=== PATIENT | female | born 1960 | race Caucasian/White ===

== ENCOUNTER 2018-01-15 10:38 | Day surgery (SDC) | payer OTHER ==
--- NOTE | 2018-01-14 15:24 | HP ---
DATE OF SURGERY: 01/15/2018 HISTORY OF PRESENT ILLNESS: The patient has some upper abdominal pain, diarrhea, blood at the end of bowel movements a tablespoon at times. Six times here in the last few months. She has reflux symptoms. She presents for both upper and lower endoscopic examination. PAST MEDICAL HISTORY: ALLERGIES: PENICILLIN, LEVAQUIN. MEDICATIONS: Zantac, Imitrex, propranolol, Zocor. PAST SURGICAL HISTORY: Oophorectomy. Hysterectomy. SOCIAL HISTORY: Negative. FAMILY HISTORY: Negative. REVIEW OF SYSTEMS: Reflux. Migraines. PHYSICAL EXAMINATION: VITAL SIGNS: Normal. CHEST: Clear. COR: Regular. ABDOMEN: No palpable organomegaly or mass. IMPRESSION: Blood per rectum, upper abdominal pain. PLAN: EGD and colonoscopy.
[~2018-01-15 10:38] MED LIST: Lactated Ringers 1,000 ML IV SCH
[2018-01-15] MEDS ORDERED: DIPRIVAN 200 MG/20 ML IV ONE (10:39)
[2018-01-15] MEDS ORDERED: Versed 2 MG/2 ML Injection IV ONE (10:39)
[2018-01-15] MEDS ORDERED: Lactated Ringers 1,000 ML IV ONE (10:45)
--- NOTE | 2018-01-15 13:30 | OP ---
SURGERY DATE/TIME: 01/15/2018 1225 PREOPERATIVE DIAGNOSIS: Epigastric pain, diarrhea, reflux and bloody stools. POSTOPERATIVE DIAGNOSIS: 1) A 1 inch hiatal hernia. 2) Grade 2/3 gastroesophageal reflux disease. 3) Pancolonic diverticulosis with a very redundant colon. PROCEDURES: 1) Colonoscopy complete to the cecum but with a poor view of the distal cecum with findings of severe pancolonic diverticulosis and a very redundant colon. 2) EGD with cold biopsy. SURGEON: Naveen Benz M.D. MARKETING EXECUTIVE: Brennan Child M.D. ANESTHESIA: MAC. COMPLICATIONS: None. CONDITION: Stable. INDICATION: A patient requiring evaluation. DESCRIPTION OF PROCEDURE: Taken to endoscopy. MAC sedation provided. Upper scope introduced. Pharyngo-esophageal junction satisfactory. Esophagus normal down to gastroesophageal junction. A rim of esophagitis grade II. There was a 1 inch hiatal hernia. Fundus, body, antrum satisfactory. Pylorus satisfactory. Duodenal bulb and second portion satisfactory. The scope withdrawn. No mucosal lesions noted. Anal digital examination. Anus was slightly loose. Scope introduced. She did expel some air. She did have hiccups. Scope advanced. The colon was very redundant. There was pancolonic diverticulosis. The left side was a little bit firm. It was moved over to the right side down and around. It was very redundant. I believe a distal view was obtained of the cecum but it was just a little limited so you cannot see the very inside corner of the distal cecum. Circumferential withdrawal. No mucosal lesions were noted. The patient tolerated the procedure satisfactorily.
[2018-01-15 14:12] VITALS: O2SAT 96
[2018-01-15 14:16] VITALS: BP 131/88; PULSE 63
[2018-01-15 14:46] LABS: 027 TOX PROD PRESUMPTIVE NEGATIVE (NEGATIVE); TOXIGENIC C. DIFF ORG NEGATIVE (NEGATIVE)
[2018-01-16 16:28] LABS: Source: Feces
== END 2018-01-15 14:00 | disposition home or self-care (01) ==
LOC: SDC 10:38
PROVIDERS: ATTEND Surgery
DX: K44.9 Diaphragmatic hernia without obstruction or gangrene (principal); K21.9 Gastro-esophageal reflux disease without esophagitis; K57.90 Diverticulosis of intestine, part unspecified, without perforation or abscess without bleeding; Q43.8 Other specified congenital malformations of intestine; R19.7 Diarrhea, unspecified; K92.1 Melena
CPT/HCPCS: 36415; 87045; 87046; 87177; 87209; 87335; 87493; 88305; J2250; J2704

== ENCOUNTER 2020-12-07 06:58 | Day surgery (SDC) | payer OTHER ==
--- NOTE | 2020-11-29 15:26 | HP ---
DATE OF SURGERY: 12/07/2020 HISTORY OF PRESENT ILLNESS: The patient presents with complaints of intermittent diarrhea for the past three to five weeks. States that she had a colonoscopy back in 2018 and there was some diverticulosis and redundant colon. Complains of some upper epigastric pain as well despite being on reflux medicine. Reports some mild nausea in the evening. On omeprazole in the morning. Denies abdominal pain. States there is some epigastric pain with eating. PAST MEDICAL HISTORY: Reflux. Migraines. Hyperlipidemia. PAST SURGICAL HISTORY: Ovarian cyst removal. Hysterectomy. ALLERGIES: PENICILLIN. LEVAQUIN. MEDICATIONS: Omeprazole, propranolol, simvastatin, Olga, aspirin, sumatriptan. FAMILY HISTORY: None reported. SOCIAL HISTORY: Negative. REVIEW OF SYSTEMS: CONSTITUTIONAL: Denies fever or chills. CHEST: Denies shortness of breath. CVS: Denies chest pain. ABDOMEN: Reports epigastric pain, diarrhea, nausea. Denies constipation or rectal bleeding. INTEGUMENTARY: Negative. PHYSICAL EXAMINATION: GENERAL: No acute distress. CHEST: Nonlabored. No shortness of breath. CVS: Regular rate and rhythm. ABDOMEN: Soft, nontender to palpation. EXTREMITIES: No edema. NEUROLOGIC: Alert. PSYCHIATRIC: Appropriate. IMPRESSION: Epigastric pain, diarrhea, history of diverticulosis. PLAN: EGD and colonoscopy with stool study with Dr. Naveen Benz. As dictated by Candice Nance NP.
[2020-12-07] MEDS ORDERED: Lactated Ringers 1,000 ML IV SCH (07:30)
[2020-12-07] MEDS ORDERED: Lactated Ringers 1,000 ML IV ONE (07:33)
[2020-12-07] MEDS ORDERED: DIPRIVAN 200 MG/20 ML IV ONE ×2 (08:51→09:08)
[2020-12-07 10:28] VITALS: PULSE 67; O2SAT 97
[2020-12-07 10:48] VITALS: BP 119/76
[2020-12-07 12:09] LABS: 027 TOX PROD PRESUMPTIVE NEGATIVE (NEGATIVE); TOXIGENIC C. DIFF ORG NEGATIVE (NEGATIVE)
--- NOTE | 2020-12-07 12:56 | OP ---
SURGERY DATE/TIME: 12/07/2020 0855 PREOPERATIVE DIAGNOSES: 1) Epigastric pain. 2) Abdominal pain, cramps, diarrhea and she is due for follow up exam. POSTOPERATIVE DIAGNOSES: 1) Severe sigmoid diverticulosis 2) Grade II-IV gastroesophageal reflux disease i.e. B/D gastroesophageal reflux disease. 3) Proton pump inhibitor polyps of no significance. PROCEDURES: 1) Colonoscopy complete to cecum. 2) EGD. SURGEON: Naveen Benz M.D. ANESTHESIA: MAC. COMPLICATIONS: None. CONDITION: Stable. INDICATION: A patient with the above symptoms. DESCRIPTION OF PROCEDURE: Taken to endoscopy. Left lateral decubitus position. Pharyngoesophageal junction normal. Esophagus normal down to gastroesophageal junction. There was esophagitis grade B/D. No hiatal hernia. There are proton pump inhibitor polyps in the fundus and body of no significance. They are 4 to 6 mm and look totally innocent. Pylorus satisfactory. Duodenal bulb satisfactory. Second portion satisfactory. The scope looped upon itself no hiatal hernia. Anal digital examination satisfactory. Scope introduced. Rectum normal. Sigmoid was angulated and there were 200 diverticulum coming out of the sigmoid things were better. Descending colon scant diverticula. Transverse excellent. Ascending excellent. Base of cecum, ileocecal valve was normal. Circumferential withdrawal no mucosal lesions were noted. IMPRESSION: Severe sigmoid diverticulosis which explains her symptoms. Stool was sent for ova and parasite, stool pathogens and Clostridium difficile. Follow up in five years.
== END 2020-12-07 10:35 | disposition home or self-care (01) ==
LOC: SDC 06:58
PROVIDERS: ATTEND Surgery
DX: K57.30 Diverticulosis of large intestine without perforation or abscess without bleeding (principal); K21.9 Gastro-esophageal reflux disease without esophagitis; R19.7 Diarrhea, unspecified; R10.13 Epigastric pain; K31.7 Polyp of stomach and duodenum
CPT/HCPCS: 87045; 87046; 87328; 87329; 87493; J2704

== ENCOUNTER 2024-07-30 06:18 | Emergency (ER) | payer MEDICARE, OTHER ==
[2024-07-30 06:42] VITALS: TEMP 97
--- NOTE | 2024-07-30 06:58 | ERPHSYRPT ---
- History of Present Illness Time Seen by Provider: 07/30/24 06:35 Historian: patient Exam Limitations: no limitations Patient Subjective Stated Complaint: Pt reports last night approx 2100 or 2200 pt started experiencing pale stool that led to liquid stool with blood. Stool is starting to form. Pt states she had approx 6-8 stools between last night to time of triage. Abdominal cramping across lower abdomen. Nausea present, no vomiting. Triage Nursing Assessment: Pt alert and oriented x3. Respirations easy/nonlabored. Skin w/p/d. Ambulated to ED cot without difficulty. Abdomen round/soft/nontender. Active bowel sounds in all four quads. No stool at this time. No active vomiting. Physician History: This is a 64-year-old white female patient who presents with crampy abdominal pain in her bilateral lower quadrants with associated hematochezia. She was nauseated earlier but that has resolved. No vomiting. Patient states this week she has had several days where she consumed nuts. She has a history of divert iculosis. She has had no prior abdominal surgeries but has had colonoscopies in the past. The pain is described as aching and cramping. Patient has no liver disease. She is not on any anticoagulation therapy, she has no bleeding or clotting disorders. Patient denies shortness of breath. Patient denies chest pain. Patient has a history of migraine headaches, hyperlipidemia and gastroesophageal reflux disease. She also has a history of colonic polyps. Timing/Duration: yesterday Quality: aching, cramping Abdominal Pain Onset Location: RLQ, LLQ Pain Radiation: no radiation Severity of Pain-Max: mild Severity of Pain-Current: mild Modifying Factors: Improves With: nothing Associated Symptoms: nausea Previous symptoms: same symptoms as today, no recent treatment Allergies/Adverse Reactions: levofloxacin [From Levaquin] Allergy (Mild, Verified 07/30/24 06:30) sleeplessness Penicillins Allergy (Unknown, Verified 07/30/24 06:30) Home Medications: SUMAtriptan succinate [Imitrex 50 mg] 100 mg PO UD PRN 09/08/13 [History] Simvastatin [Zocor] 40 mg PO DAILY 09/08/13 [History] Fexofenadine HCl [Olga] 30 mg PO DAILY 01/07/18 [History] Aspirin 81 mg PO DAILY 11/29/20 [History] Lactobacillus Acidophilus [Probiotic] 1 each PO DAILY 11/29/20 [History] Multivitamin [Daily Multivitamin] 1 each PO DAILY 11/29/20 [History] Omeprazole 20 mg PO DAILY 11/29/20 [History] Propranolol HCl [Inderal ] 20 mg PO BID 11/29/20 [History] Flaxseed/Omega3,6,9/Fatty Acid [Flax Seed Oil 1,300 mg Softgel] 2 cap PO DAILY 07/30/24 [History] Hx Tetanus, Diphtheria Vaccination/Date Given: Yes Hx Influenza Vaccination/Date Given: Yes Hx Pneumococcal Vaccination/Date Given: Yes Travel Risk - International Travel Have you traveled outside of the country in past 3 weeks: No - Emerging Infectious Disease Are you exhibiting symptoms associated with any current EIDs: Yes Symptoms: Abdominal Pain, Diarrhea - Review of Systems Constitutional: No Symptoms Eyes: No Symptoms Ears, Nose, & Throat: No Symptoms Respiratory: No Symptoms Cardiac: No Symptoms Abdominal/Gastrointestinal: Abdominal Pain (Bilateral lower quadrants), Nausea, Diarrhea, Hematochezia, No Vomiting, No Constipation, No Appetite Changes Genitourinary Symptoms: No Symptoms Musculoskeletal: No Symptoms Skin: No Symptoms Neurological: No Symptoms Psychological: No Symptoms Endocrine: No Symptoms Hematologic/Lymphatic: No Symptoms Immunological/Allergic: No Symptoms All Other Systems: Reviewed and Negative - Past Medical History Pertinent Past Medical History: Yes Neurological History: Migraines ENT History: No Pertinent History Cardiac History: High Cholesterol Respiratory History: No Pertinent History Endocrine Medical History: No Pertinent History Musculoskeletal History: No Pertinent History GI Medical History: Diverticulosis, GERD, Polyps History: No Pertinent History Psycho-Social History: No Pertinent History Female Reproductive Disorders: Fibroids Other Medical History: childbirth x two - Past Surgical History Past Surgical History: Yes Neuro Surgical History: No Pertinent History Cardiac: No Pertinent History Respiratory: No Pertinent History Gastrointestinal: No Pertinent History Genitourinary: No Pertinent History Musculoskeletal: No Pertinent History Female Surgical History: Hysterectomy, Other Other Surgical History: one ovary removed, colonoscopy - Social History Smoking Status: Never smoker Exposure to second hand smoke: No Drug Use: none - Social Determinants of Health Will the patient participate in the screening: Declined to provide - Nursing Vital Signs Nursing Vital Signs: Initial Vital Signs Temperature 97 F 07/30/24 06:25 Pulse Rate 80 12/20/24 06:25 Respiratory Rate 16 07/30/24 06:25 Blood Pressure 177/104 07/30/24 06:25 O2 Sat by Pulse Oximetry 98 07/30/24 06:25 Pain Scale Pain Intensity 4 - Physical Exam General Appearance: no apparent distress, alert, anxiety Eye Exam: PERRL/EOMI, eyes nml inspection Ears, Nose, Throat Exam: normal ENT inspection, moist mucous membranes Neck Exam: normal inspection, non-tender, supple, full range of motion Respiratory Exam: normal breath sounds, lungs clear, airway intact, No chest tenderness, No respiratory distress Cardiovascular Exam: regular rate/rhythm, normal heart sounds, normal peripheral pulses Gastrointestinal/Abdomen Exam: soft, normal bowel sounds, tenderness (B LQ), guarding (B LQ to palpation) Pelvic Exam: not done Rectal Exam: not done Back Exam: normal inspection, normal range of motion, No CVA tenderness, No vertebral tenderness Extremity Exam: normal inspection, normal range of motion, pelvis stable Neurologic Exam: alert, oriented x 3, cooperative, insurance commissioner II-XII nml as tested, nml cerebellar function, nml station & gait, sensation nml Skin Exam: normal color, warm, dry Lymphatic Exam: No adenopathy SpO2 Interpretation: normal SpO2: 98 O2 Delivery: Room Air - Course Nursing assessment & vital signs reviewed: Yes Ordered Tests: Active Orders 24 hr Category Date Time Status IV Insertion STAT Care 07/30/24 06:48 Ordered ABDOMEN AND PELVIS W/0 CONTRAS [CT] Stat Exams 07/30/24 06:49 Ordered AMYLASE Stat Lab 07/30/24 06:48 Ordered CBC W DIFF Stat Lab 07/30/24 06:48 Ordered CMP Stat Lab 07/30/24 06:48 Ordered LIPASE Stat Lab 07/30/24 06:48 Ordered PT INR [PROTIME WITH INR] Stat Lab 07/30/24 06:49 Ordered UA W/RFX UR CULTURE Stat Lab 07/30/24 06:49 Ordered Medication Summary Generic Name Dose Route Start Last Admin Trade Name Freq PRN Reason Stop Dose Admin Sodium Chloride 1,000 mls @ 999 mls/hr 07/30/24 06:48 Sodium Chloride 0.9% 1000 Ml IV 07/30/24 07:48 .Q1H1M STA - Progress Progress Note: 07/30/24 06:57 My medical decision making and the assignment of moderate complexity to this patient's medical issue today is based on review of the patient's past medical history, review the patient's medication list, reviewed patient drug allergy list, history present of some physical findings on examination. The workup in this patient includes placement of a intravenous line, infusion of normal saline solution, CBC, CMP, amylase, lipase, PT/INR, urinalysis, CT scan of the abdomen pelvis without contrast. Differential diagnosis includes was not limited to colitis, diverticulitis, diverticulosis, other acute intra-abdominal/pelvic abnormality. I am transferring care of this patient to Dr. Phelps at shift change. I reviewed the patient history, presenting complaint and workup. Patient will follow-up with the workup results and make final disposition. - Departure Departure Disposition: Home Clinical Impression: Abdominal pain, Hematochezia Condition: Stable Critical Care Time: No
[2024-07-30 07:16] LABS: Absolute Neutrophil Ct (ANC) 9.99 x10^3/uL (1.56-6.13); BASOPHIL % 0.3 % (0.1-1.2); Basophil (Absolute #) 0.04 x10^3/uL (0.01-0.08); Eosinophil % 0.8 % (0.7-5.8); Eosinophil (Absolute #) 0.09 x10^3/uL (0.04-0.36); Hematocrit 42.8 % (34.1-44.9); Hemoglobin 14.2 g/dL (11.2-15.7); IMMATURE GRAN # 0.04 x10^3u/L (0.001-0.031); IMMATURE GRAN % 0.3 % (0.001-0.429); Lymphocyte (Absolute #) 1.02 x10^3/uL (1.18-3.74); Lymphocytes % 8.7 % (19.3-51.7); Mean Cell Volume 91.6 fL (79.4-94.8); Mean Corpuscular Hemoglobin 30.4 pg (25.6-32.2); Mean Corpuscular Hgb Concent. 33.2 g/dL (32.2-35.5); Mean Platelet Volume 8.2 fL (9.4-12.3); Monocyte (Absolute #) 0.61 x10^3/uL (0.24-0.86); Monocytes % 5.2 % (4.7-12.5); Neutrophil % 84.7 % (34.0-71.1); Platelet Count 359 x10^3/uL (182-369); Red Blood Count 4.67 x10^6/uL (3.93-5.22); Red Cell Distribution Width 13.1 % (11.7-14.4); White Blood Count 11.8 x10^3/uL (3.98-10.04)
[2024-07-30 07:31] LABS: Appearance Clear (Clear); Bacteria None Seen /HPF (None Seen); Bilirubin Negative (Negative); Blood Trace (Negative); Epithelial Cells Few /HPF (None Seen); Glucose, Urine Negative (Negative); Hyaline Casts NONE SEEN /LPF (0-2); Ketones Negative (Negative); Leukocyte Esterase Moderate (Negative); Nitrite Negative (Negative); Ph 5.5 (4.6-8.0); Protein,Urine Dip Negative (Negative); RBC 0-2 /HPF (0-5); Urobilinogen 0.2 mg/dL (0.2)
[2024-07-30 07:31] LABS: ALBUMIN 4.3 g/dL (3.5-5.0); ANION GAP 9.9 MEQ/L (5-15); BILIRUBIN,TOTAL 0.4 mg/dL (0.2-1.3); Calcium 10.5 mg/dL (8.4-10.2); Creatinine 1 0.64 mg/dL (0.52-1.04); EST GLOMERULAR FILTRATION RATE 97.4 ML/MIN; INR 0.91 (0.8-3.0); Potassium 4.1 mmol/L (3.5-5.1); Total Protein 7.3 g/dL (6.3-8.2)
[2024-07-30] MEDS ORDERED: Sodium Chloride 0.9% 1000 ML 1,000 ML ONE (07:42)
[2024-07-30] MEDS: Sodium Chloride 0.9% 1000 ML 1,000 ML IV STA (07:43)
[2024-07-30] MEDS ORDERED: BACTRIM DS TABLET PO ONE (08:26)
[2024-07-30] MEDS ORDERED: Flagyl 500 MG ONE (08:26)
[2024-07-30] MEDS: Flagyl 500 MG PO ONE (08:27)
[2024-07-30] MEDS: BACTRIM DS TABLET PO ONE (08:27)
[2024-07-30] MEDS ORDERED: Zofran 4 MG/2 ML VIAL ONE (08:50)
[2024-07-30] MEDS ORDERED: Hydromorphone 1 mg/ml Injection ONE (08:50)
--- NOTE | 2024-07-30 08:50 | XRAY ---
Indication: Abdomen pain and hematochezia. History diverticulosis. Multiple contiguous axial images obtained through the abdomen and pelvis without contrast. Comparison: None Lung bases demonstrates mild subsegmental atelectasis/scarring. No infiltrate or effusion. Heart not enlarged. Noncontrasted stomach and bowel loops appear nonobstructed. Minimal scattered descending and sigmoid diverticulosis. Descending colon demonstrates mild pericolonic stranding favoring diverticulitis. Incidental small hepatic calcified granuloma. Appendectomy and hysterectomy reported. No free fluid/air. Remaining liver, gallbladder, pancreas, spleen, adrenal glands, kidneys, ureters, and bladder are unremarkable for noncontrast exam. Mild scattered aortoiliac calcifications. Osseous structures intact with osteopenia and minimal/mild degenerative changes throughout the spine. Impression: 1. Mild descending diverticulitis. No free fluid/air. 2. Chronic findings including arteriosclerotic disease, chronic bony findings, and old granulomatous disease.
[2024-07-30] MEDS: Zofran 4 MG/2 ML VIAL IV ONE (08:51)
[2024-07-30] MEDS: Hydromorphone 1 mg/ml Injection IV ONE (08:55)
[2024-07-30 09:27] VITALS: BP 135/84; PULSE 74; RESP 17; O2SAT 97
== END 2024-07-30 09:28 | disposition home or self-care (01) ==
LOC: ED 06:18
DX: K92.1 Melena (principal); R10.32 Left lower quadrant pain; R10.31 Right lower quadrant pain; D72.829 Elevated white blood cell count, unspecified; N39.0 Urinary tract infection, site not specified; K57.32 Diverticulitis of large intestine without perforation or abscess without bleeding
CPT/HCPCS: 36415; 74176; 80053; 81001; 82150; 83690; 85025; 85610; 87086; 96374; 96375; 99284; J1171; J2405; L0172; A9270-GY

== ENCOUNTER 2024-09-30 11:39 | Day surgery (SDC) | payer MEDICARE ==
--- NOTE | 2024-09-28 14:13 | HP ---
HISTORY OF PRESENT ILLNESS: Patient is a 64-year-old female who presents with recent diverticulitis. It looks like she was not admitted with it. She has had some bleeding and some constipation. Last colonoscopy was 2020. She had some severe diverticulosis. She was also complaining of some heartburn and reflux and having bloating. She has been on omeprazole. PAST MEDICAL HISTORY: Diverticulitis, GERD, hyperlipidemia, migraines. HOME MEDICATIONS: Omeprazole, propranolol, simvastatin, aspirin, multivitamin, flaxseed, Olga, Imitrex, probiotic. ALLERGIES: Levaquin and penicillin. PAST SURGICAL HISTORY: Hysterectomy. SOCIAL HISTORY: Negative. FAMILY HISTORY: Hypertension, heart disease. REVIEW OF SYSTEMS: CONSTITUTIONAL: Denies fever or chills. CHEST: Denies shortness of breath. CARDIOVASCULAR: Denies chest pain. ABDOMEN: Reports reflux, heartburn. PHYSICAL EXAMINATION: GENERAL: No acute distress. CARDIOVASCULAR: Regular rate and rhythm. RESPIRATORY: Nonlabored. No shortness of breath. ABDOMEN: Soft. ASSESSMENT: History of gastroesophageal reflux disease and reflux, recent diverticulitis and rectal bleeding. PLAN: EGD and colonoscopy with Dr. Naveen Benz. This report was dictated for Dr. Benz by Candice Nance NP.
[2024-09-30 11:57] VITALS: RESP 16
[2024-09-30] MEDS: Lactated Ringers 1,000 ML IV SCH (12:11)
[2024-09-30] MEDS ORDERED: propofoL IV ONE ×2 (13:31→13:43)
[2024-09-30 14:23] VITALS: TEMP 96.8; O2SAT 100
[2024-09-30 14:26] VITALS: BP 124/62; PULSE 74
--- NOTE | 2024-10-01 10:22 | OP ---
SURGERY DATE/TIME: 10/01/24 [id number] PREOPERATIVE DIAGNOSES: Epigastric pain. ADDITIONAL DIAGNOSIS: Colonoscopy limited to 40 cm secondary to diverticulitis. This could not be accomplished secondary to diverticulitis. It was a little bit further advanced. PROCEDURE: Esophagogastroduodenoscopy performed showing gastroesophageal reflux disease and perineural invasion polyps. SURGEON: Naveen Benz M.D. DESCRIPTION OF PROCEDURE: Patient was taken to surgery. MAC/general. Scope was introduced. Epigastric pain. Grade 2/4 GERD with polyps. Scope was withdrawn. It was re-backed up with EGD showing 2/4 GERD; proton inhibitor polyps, PIP polyps. Limited colonoscopy was performed. Colonoscopy advanced to about 14. Satisfactory, suggestive of epigastric port. The scope was introduced anus, rectum. The scope was advanced to 40 cm. At this point, there were several diverticula and this was not going to be further advanced. It was actually pulled out once and totally restarted.
== END 2024-09-30 14:50 | disposition home or self-care (01) ==
LOC: SDC 11:39
PROVIDERS: ATTEND Surgery
DX: K57.92 Diverticulitis of intestine, part unspecified, without perforation or abscess without bleeding (principal); R10.13 Epigastric pain; K21.9 Gastro-esophageal reflux disease without esophagitis; K63.5 Polyp of colon
CPT/HCPCS: J2704